=== PATIENT | female | born 1995 | race African-American/Black ===

== ENCOUNTER 2020-01-31 09:22 | Emergency (ER) | payer OTHER ==
[~2020-01-31] VITALS: Ht 152.4 cm; Wt 56.7 kg
[2020-01-31 09:35] VITALS: TEMP 98.9
[2020-01-31 10:46] VITALS: BP 118/65
== END 2020-01-31 10:46 | disposition home or self-care (01) ==
LOC: ED 09:22
PROC: 0HQ2XZZ Repair Right Ear Skin, External Approach (ICD-10-PCS; principal; 2020-01-31)
DX: S01.351A Open bite of right ear, initial encounter (principal); W54.0XXA Bitten by dog, initial encounter; Y92.531 Health care provider office as the place of occurrence of the external cause
CPT/HCPCS: 90471; 90715; 96372; 99283; J0696; J1885